=== PATIENT | male | born 1985 | race Caucasian/White ===

== ENCOUNTER → 2016-09-10 | Outpatient (REF) | payer OTHER | LOC: M LAB REF 13:16 | PROVIDERS: ATTEND Nurse Practitioner Adult Health | DX: R74.8 Abnormal levels of other serum enzymes (principal) ==

== ENCOUNTER → 2016-10-17 | Outpatient (REF) | payer OTHER | LOC: M LAB REF 15:40 | PROVIDERS: ATTEND Surgery | DX: L72.0 Epidermal cyst (principal) ==

== ENCOUNTER → 2018-11-06 | Outpatient (REF) | payer OTHER ==
[2018-11-06 14:50] LABS: HEPATITIS A ANTIBODY IGM NEGATIVE (NEGATIVE); HEPATITIS B CORE ANTIBODY IGM NEGATIVE (NEGATIVE); HEPATITIS B SURFACE ANTIGEN NEGATIVE (NEGATIVE)
== END ==
LOC: M LAB REF 13:06
PROVIDERS: ATTEND Nurse Practitioner Adult Health
DX: R74.8 Abnormal levels of other serum enzymes (principal)

== ENCOUNTER 2020-09-09 15:01 | Emergency (ER) | payer OTHER ==
[~2020-09-09] VITALS: Ht 190.5 cm; Wt 122.7 kg
[2020-09-09] MEDS ORDERED: TRAM50TA2 (15:21)
[2020-09-09] MEDS ORDERED: BOOSTRIX/ADACEL VACCINE (DIPHTH/PERTUSS/ACELL/TETANUS) 0.5ML SYR IM ONE (15:40)
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
[2020-09-09] MEDS ORDERED: KETOROLAC 30 MG/ML 1ML VIAL IV ONE (16:15)
[2020-09-09] MEDS ORDERED: KETO10TAB PO (16:31)
[2020-09-09 16:32] VITALS: BP 136/74
[2020-09-09 16:34] LABS: BASO % 0.4 % (0.0-1.0); EOS # 0.3 10^3/uL (0.0-0.5); HEMATOCRIT 45.2 % (42.0-52.0); HEMOGLOBIN 15.3 g/dl (13.5-17.5); LYMPH # 2.9 10^3/uL (1.5-5.0); LYMPH % 25.8 % (24.0-44.0); MEAN CORPUSCULAR HEMOGLOBIN 30.1 pg (27.0-33.0); MEAN CORPUSCULAR HGB CONC 33.8 g/dl (32.0-36.5); MONO # 0.8 10^3/uL (0.0-0.8); MONO % 7.4 % (2.0-8.0); NEUTROPHILS # 7.1 10^3/uL (1.5-8.5); PLATELET COUNT, AUTOMATED 248 10^3/uL (150-450); RED BLOOD COUNT 5.08 10^6/uL (4.30-6.10); WHITE BLOOD COUNT 11.2 10^3/uL (4.0-10.0)
== END 2020-09-09 17:05 | disposition home or self-care (01) ==
LOC: M ED 15:01
DX: S06.0X0A Concussion without loss of consciousness, initial encounter (principal); W22.09XA Striking against other stationary object, initial encounter; Y92.89 Other specified places as the place of occurrence of the external cause; F17.200 Nicotine dependence, unspecified, uncomplicated
CPT/HCPCS: 70450; 80047; 85025; 90471; 90715; 96374; 99284; J1885

== ENCOUNTER → 2020-10-31 | Outpatient (REF) | payer OTHER ==
[~2020-10-31] MED LIST: KETO10TAB PO; TRAM50TA2
[2020-10-31 16:58] LABS: HEMATOCRIT 50.5 % (42.0-52.0)
[2020-10-31 17:35] LABS: FERRITIN 260 NG/ML (26-388); IRON (FE) 123 UG/DL (65-175); PERCENT SATURATION 34.9 % (19.7-50.0); TOTAL IRON BINDING CAPACITY 352 UG/DL (250-450)
[2020-10-31 17:50] LABS: HEPATITIS B SURFACE ANTIGEN NEGATIVE (NEGATIVE)
[2020-10-31 18:18] LABS: HEPATITIS B CORE ANTIBODY IGM NEGATIVE (NEGATIVE); HEPATITIS C VIRUS ABY INDEX < 0.0 INDEX (<0.8)
[2020-10-31 18:20] LABS: HEPATITIS A ANTIBODY IGM NEGATIVE (NEGATIVE)
== END ==
LOC: M LAB REF 13:04
PROVIDERS: ATTEND Nurse Practitioner Adult Health
DX: R74.8 Abnormal levels of other serum enzymes (principal)

== ENCOUNTER → 2022-01-23 | Outpatient (REF) | payer BC, OTHER | LOC: M LAB REF 16:13 | PROVIDERS: ATTEND Nurse Practitioner Adult Health | DX: R68.82 Decreased libido (principal) ==

== ENCOUNTER 2022-02-23 20:33 | Emergency (ER) | payer BC ==
[~2022-02-23] VITALS: Ht 188 cm; Wt 118.5 kg
[2022-02-23 20:36] VITALS: BP 135/98
[2022-02-23] MEDS ORDERED: ALLE10TA62 PO (20:39)
[2022-02-23] MEDS ORDERED: NEXI20CA PO (20:39)
[2022-02-24] MEDS ORDERED: valACYclovir HCL 500 MG TAB PO ONE
[2022-02-24] MEDS ORDERED: FLUORESCEIN OPHTH 1 MG STRIP OS ONE
[2022-02-24] MEDS ORDERED: GABAPENTIN 300 MG CAP PO ONE
[2022-02-24] MEDS ORDERED: PROPARACAINE 0.5% OPHTH SOL 15ML OS ONE
[2022-02-24] MEDS ORDERED: NEUR300C PO (00:51)
[2022-02-24] MEDS ORDERED: VALA1TAB5 PO (00:51)
[2022-02-24] MEDS ORDERED: NORCO 5/325MG TABLET (HOME DOSE PACK) PO ONE (01:00)
== END 2022-02-24 01:10 | disposition home or self-care (01) ==
LOC: M ED 20:33
DX: B02.9 Zoster without complications (principal); H02.846 Edema of left eye, unspecified eyelid; Z79.899 Other long term (current) drug therapy